=== PATIENT | female | born 1995 | race Caucasian/White ===

== ENCOUNTER 2017-10-23 11:03 | Emergency (ER) | payer BC ==
[~2017-10-23] VITALS: Ht 162.6 cm; Wt 68.0 kg
[~2017-10-23 11:03] MED LIST: AMOXICILLIN500 MG PO; FLUOXETINE HCL20 MG PO; KEFLEX500 MG PO; ORTHO TRI-CYCL1 EAC1 PO
[2017-10-23] MEDS ORDERED: FLUOXETINE HCL20 MG PO (11:27)
[2017-10-23] MEDS ORDERED: DOXYCYCLINE HY100 MG PO (13:44)
[2017-10-23] MEDS ORDERED: NAPROSYN500 MG PO (13:44)
== END 2017-10-23 14:00 | disposition home or self-care (01) ==
LOC: ED 11:03
DX: R10.2 Pelvic and perineal pain (principal); F17.200 Nicotine dependence, unspecified, uncomplicated; Z79.899 Other long term (current) drug therapy
CPT/HCPCS: 74176; 80053; 81001; 83690; 84703; 85025; 96374; 96375; 99284; J1885; J2405; J7030

== ENCOUNTER 2018-04-22 09:55 | Emergency (ER) | payer BC ==
[~2018-04-22] VITALS: Ht 162.6 cm; Wt 79.4 kg
[~2018-04-22 09:55] MED LIST changes: +DOXYCYCLINE HY100 MG PO; +NAPROSYN500 MG PO
[2018-04-22] MEDS ORDERED: ZITHROMAX250 MG PO (12:50)
--- NOTE | 2018-04-23 08:08 | EKG ---
[facility] [address] [facility] [place], [place] [address] Signed Normal sinus rhythm Normal ECG No previous ECGs available Confirmed by KARLIE HAMILTON MD ([id number]) on 04/23/2018 8:07:37 AM Electronically Signed By: KARLIE HAMILTON MD 04/23/18 0808 PATIENT NAME: AYESHA JASMINE Electrocardiogram DATE OF : [birth year] PHYSICIAN: KARLIE HAMILTON MD REPORT #: [id number] REPORT IS CONFIDENTIAL AND NOT TO BE RELEASED WITHOUT AUTHORIZATION
== END 2018-04-22 12:55 | disposition home or self-care (01) ==
LOC: ED 09:55
DX: F41.9 Anxiety disorder, unspecified (principal); J06.9 Acute upper respiratory infection, unspecified; F17.200 Nicotine dependence, unspecified, uncomplicated; Z79.899 Other long term (current) drug therapy
CPT/HCPCS: 36415; 80053; 81001; 82150; 83690; 84484; 84703; 85025; 93005; 93010; 96361; 96374; 96375; 99285; J2060; J7030

== ENCOUNTER 2018-10-08 06:55 | Day surgery (SDC) | payer BC ==
[~2018-10-08] VITALS: Ht 162.6 cm; Wt 89.8 kg
[~2018-10-08 06:55] MED LIST changes: +ADVIL LIQUI-GE200 MG PO; +ZITHROMAX250 MG PO
--- NOTE | 2018-10-08 10:34 | NUR ---
10/08/18 1034 Gabby Spears 1027- PT ARRIVES TO PACU FROM OR ON 10 L VIA MASK WITH O2 SATS 100%. RESP EVEN AND UNLABORED. PT REACTIVE TO VERBAL STIMULUS. PT OPENS EYES AND LOOKS AROUND ROOM AND ANSWERS QUESTIONS APPROPRIATELY. 4 SURGICAL SITES WITH STERI STRIPS IN PLACE WITH SMALL AMOUNT OF DRAINAGE. PT TITRATED TO 6 L VIA MASK WITH SATS 100%. 1031- PT TITRATED TO RA. RESP EVEN AND UNLABORED. PT REPORTS 6/10 PAIN AND DENIES NAUSEA. PILLOW GIVEN FOR SPLINTING ABD., RA SATS 100%. PT SITS UP AND LOOKS AROUND. 1033- VSS. RA SATS 98%. PT RESPONDS APPROPRIATELY TO QUESTIONS.
[2018-10-08] MEDS ORDERED: MAPAP325 MG PO (10:38)
[2018-10-08] MEDS ORDERED: OXYCODON-ACETA1 EAC2 PO (10:38)
[2018-10-08] MEDS ORDERED: IBUPROFEN600 MG PO (10:38)
--- NOTE | 2018-10-08 11:16 | NUR ---
PT IS BACK TO FROM PACU. SHE IS AWAKE, LITTLE SLEEPY. SHE IS REPORTING 3/10 PAIN . MOM CHANEL IS AT THE BEDSIDE. CALL LIGHT WITHIN REACH. NO ADDITIONAL NEEDS AT THIS TIME. WILL CONTINUE TO MONITOR.
--- NOTE | 2018-10-08 12:09 | NUR ---
PT IS SLEEPING UPON ENTERING HER ROOM. HER PARENTS ARE AT THE BEDSIDE. SHE IS REQUESTING SOMETHING FOR PAIN, STATING THAT SHE IS A 3/10 AND IT IS UNCOMFORTABLE. NO ADDITIONAL NEEDS AT THIS TIME. WILL CONTINUE TO MONITOR.
--- NOTE | 2018-10-08 13:15 | NUR ---
PT REPORTS THAT HER PAIN IS IMPROVING. SHE IS SLEEPY, BUT ANSWERS APPROPRIATELY TO QUESTIONS. SHE IS ASKED IF SHE NEEDS TO USE THE RESTROOM, SHE DENIES THE NEED. DENIES STILL BEING HUNGRY. NO ADDITIONAL NEEDS AT THIS TIME. WILL CONTINUE TO MONITOR.
--- NOTE | 2018-10-08 15:20 | NUR ---
PT HAS MET DC CRITERIA. SHE INDICATES THAT SHE WOULD LIKE TO GET DRESSED AND GO HOME. SHE IS GIVEN VERBAL DC INSTRUCTIONS WITH HER DAD PRESENT, THEY BOTH VERBALIZE UNDERSTANDING. SHE IS TAKEN OUT TO THE VEHICLE VIA WC, SHE IS ABLE TO TRANSFER HERSELF FROM WC TO VEHICLE.
--- NOTE | 2018-10-10 12:01 | OR ---
[facility] [address] [place], [place] [address] Signed DATE OF OPERATION: 10/08/2018 SURGEON: Vern Hu MD PREOPERATIVE DIAGNOSIS: Subacute calculous cholecystitis. POSTOPERATIVE DIAGNOSIS: Subacute calculous cholecystitis. PROCEDURES: 1. Laparoscopic cholecystectomy with intraoperative cholangiogram. 2. Surgeon-directed fluoroscopy. ANESTHESIA: General endotracheal. Vern Feliz CRNA and local 10 mL of 0.25% Marcaine with epinephrine. INDICATION: This 23-year-old white woman is a patient of SHUKRI Maravilla and has been having symptoms highly typical of biliary disease including right subcostal pain and subscapular pain following meals. She was evaluated by SHUKRI Maravilla and underwent gallbladder ultrasound confirming multiple gallstones. Her liver enzymes are normal preoperatively. She is admitted at this time to undergo cholecystectomy preferably by laparoscopic approach. The risks of bleeding, infection, bile duct injury, need for open procedure and of course failure to cure her symptoms was all reviewed with her in detail. She understands and wished to proceed. FINDINGS: The gallbladder was chronically and subacutely inflamed. The liver was normal. The gallbladder indeed was packed with stones including a large stone that was wedged in the infundibulum. Cholangiogram was normal however. The gallbladder once opened showed white pale mucosa without sign of neoplasm and multiple multifaceted large gallstones. There were no other findings of concern. DESCRIPTION OF PROCEDURE: The patient was brought to the operating room given a general endotracheal anesthetic. Preoperative antibiotic Ancef was given. Sequential compression device stockings used and heparin subcutaneously administered. The abdomen was prepared with a chlorhexidine solution after general endotracheal anesthesia was induced. An infraumbilical incision Electronically Signed By: VERN HU MD 10/10/18 1201 PATIENT NAME: AYESHA JASMINE OPERATIVE REPORT DATE OF : [birth year] REPORT #: [id number] PHYSICIAN: VERN HU MD PCP: YVONNE RUDD PA-C REPORT IS CONFIDENTIAL AND NOT TO BE RELEASED WITHOUT AUTHORIZATION [facility] [address] [place], [place] [address] Signed was made and using an open Karla cannula technique, pneumoperitoneum was achieved to the level of 14 mmHg of carbon dioxide gas. Intraabdominal inspection showed no sign of ascites, carcinomatosis, or other problem. The liver appeared reasonably normal. There is only mild fatty infiltration. The gallbladder mucosa had a dull whitish appearance. Three additional trocars were placed in usual configuration in the subxiphoid, midclavicular, and right anterior axillary line. The gallbladder was elevated cephalad and found to be markedly tense and distended with stones including a very large stone in the infundibulum that was wedged in place. The gallbladder was grasped and retracted laterally, but dissection both laterally and medially was undertaken due to the large gallstone in the infundibulum. Ultimately, cystic duct was well defined. Cystic arterial branch doubly clipped and later divided. A clip was applied across the gallbladder cystic duct junction and a transverse choledochotomy made in the cystic duct. Retrograde milking of the duct showed somewhat thickened yellow bile. Using the Mendiola type cholangiocatheter system, intraoperative cholangiography was undertaken with surgeon-directed fluoroscopy. Free flow of contrast was noted into the biliary tree with prompt emptying into the duodenum. There was no sign of biliary dilatation. The catheter was removed and the cystic duct was triply clipped and divided and the gallbladder dissected free in a retrograde fashion using electrocautery. The gallbladder was placed in an endobag and extracted through the infraumbilical port site. The gallbladder was opened on the back table by the circulating nurse and multiple large stones were noted. The mucosa was pale white. No sign of neoplasm. Irrigation was undertaken in subhepatic space. The clips appeared secure. There was good hemostasis. Excess irrigation of fluid was suctioned free and the trocars were then removed under direct visualization showing no sign of bleeding or bile leak. The trocars were then removed under direct visualization. There was no sign of bleeding. The infraumbilical fascial incision was reapproximated with interrupted 0 Vicryl suture as well as a running 0 PDS suture. A 10 mL of 0.25% Marcaine with epinephrine was injected locally. Irrigation was undertaken and the skin was then closed with interrupted 3-0 Vicryl. Steri-Strips were applied. The patient was ultimately extubated and transferred to recovery in good condition having suffered no complications. Sponge, needle, and instrument counts reported as correct x3. Electronically Signed By: VERN HU MD 10/10/18 1201 PATIENT NAME: AYESHA JASMINE OPERATIVE REPORT DATE OF : [birth year] REPORT #: [id number] PHYSICIAN: VERN HU MD PCP: YVONNE RUDD PA-C REPORT IS CONFIDENTIAL AND NOT TO BE RELEASED WITHOUT AUTHORIZATION [address] [address] Signed Vern Hu MD JM/MODL /[id number] cc: Yvonne Rudd PA-C Copies: YVONNE RUDD PA-C ~ Electronically Signed By: VERN HU MD 10/10/18 1201 PATIENT NAME: AYESHA JASMINE OPERATIVE REPORT DATE OF : [birth year] REPORT #: [id number] PHYSICIAN: VERN HU MD PCP: YVONNE RUDD PA-C REPORT IS CONFIDENTIAL AND NOT TO BE RELEASED WITHOUT AUTHORIZATION
== END 2018-10-08 15:15 | disposition home or self-care (01) ==
LOC: DS 06:55
PROVIDERS: Surgery
PROC: BF13YZZ Fluoroscopy of Gallbladder and Bile Ducts using Other Contrast (ICD-10-PCS; 2018-10-08)
PROC: 0FT44ZZ Resection of Gallbladder, Percutaneous Endoscopic Approach (ICD-10-PCS; principal; 2018-10-08 07:45)
DX: K80.10 Calculus of gallbladder with chronic cholecystitis without obstruction (principal); E66.9 Obesity, unspecified; I10 Essential (primary) hypertension; K21.9 Gastro-esophageal reflux disease without esophagitis; F41.0 Panic disorder [episodic paroxysmal anxiety]; F17.210 Nicotine dependence, cigarettes, uncomplicated; Z68.34 Body mass index [BMI] 34.0-34.9, adult; Z79.899 Other long term (current) drug therapy
CPT/HCPCS: 00790; 74300; J0330; J0690; J1100; J1644; J1885; J2250; J2405; J2704; J2765; J3010; J7120; Q9967

== ENCOUNTER 2019-10-08 15:38 | Emergency (ER) | payer BC ==
[~2019-10-08] VITALS: Ht 162.6 cm; Wt 99.8 kg
[~2019-10-08 15:38] MED LIST changes: +IBUPROFEN600 MG PO; +MAPAP325 MG PO; +OXYCODON-ACETA1 EAC2 PO
[2019-10-08] MEDS ORDERED: ONDANSETRON ODT8 MG PO (19:04)
== END 2019-10-08 19:11 | disposition home or self-care (01) ==
LOC: ED 15:38
DX: R10.32 Left lower quadrant pain (principal); F17.200 Nicotine dependence, unspecified, uncomplicated
CPT/HCPCS: 74177; 80053; 83690; 84703; 85025; 87491; 87591; 96360; 96361; 99284-25; 99406; J7030; Q9967